=== PATIENT | female | born 1970 | race Hispanic/Latino ===

== ENCOUNTER 2024-09-18 13:40 | Inpatient (IN) | payer OTHER, SELFPAY ==
--- NOTE | 2024-09-18 13:57 | RAD REPORT ---
EXAM: CT brain without contrast HISTORY: Left facial droop. COMPARISON: None TECHNIQUE: Multiple contiguous axial images were obtained and a CT of the brain without contrast. Sagittal and coronal reformats were performed. Automated exposure control, adjustment of the mA and/or kV according to patient size, and/or itera tive reconstruction. Unless otherwise specified, incidental findings do not require dedicated imaging follow-u FINDINGS: An intracranial bleed is not seen Ventricles are normal caliber No extra-axial fluid collection noted Mild low-density areas within periventricular, deep subcortical white matter probably ischemic change s secondary to small vessel disease No fluid within the visualized sinuses or mastoids noted. IMPRESSION: No acute intracranial abnormality noted. If the patient's symptoms persist MRI of the brain would be recommended. from the emergency room was notified at 1:53 PM September 18, 2024
[2024-09-18 14:09] LABS: Absolute Eosinophils 0.1 K/uL (0-0.5); Absolute Lymphocytes (CBC) 1.8 K/uL (0.7-4.9); Absolute Monocytes 0.3 K/uL (0.1-1.3); Absolute Neutrophil 5.1 K/uL (1.8-8.0); Basophils % 0.5 % (0-1.3); Eosinophils % 1.3 % (0-4.4); Hematocrit 40.1 % (36.0-45.0); Hemoglobin 13.5 g/dL (12.0-15.0); Lymphocytes % 24.6 % (15.3-44.8); MCH 30.7 pg (27.0-35.0); MCHC 33.7 g/dL (32.0-36.0); MCV 91.1 fL (80-100); MPV 9.1 fL (7.6-11.3); Monocytes % 3.9 % (3.3-12.3); Neutrophils % 69.7 % (41.7-73.7); Platelets 201 thou/uL (152-406); Red Cell Distribution Width 13.7 % (12.1-15.2)
[2024-09-18 14:18] LABS: PT Prothrombin Time 13.4 SECONDS (9.4-12.5); PTT, Activated Partial Thromb 32.3 SECONDS (24.3-36.9); Protime INR 1.28
[2024-09-18] MEDS ORDERED: Nicardipine/NS 25 MG/250 ML KIT IV ONE ×2 (14:25→20:40)
[2024-09-18 14:27] LABS: Anion Gap 7.2 mEq/L (5.0-15.0); Magnesium 2.1 mg/dL (1.6-2.4); Potassium 3.2 mEq/L (3.5-5.1)
[2024-09-18 14:29] LABS: Troponin High Sensitivity 72.8 pg/mL (<58.9)
--- NOTE | 2024-09-18 14:33 | RAD REPORT ---
Procedure: Chest Single View HISTORY: CVA workup COMPARISON: none FINDINGS: The lungs appear clear of acute infiltrate. No significant pleural effusion noted. The heart is mildly enlarged.. IMPRESSION: No acute abnormality is displayed.
[2024-09-18] MEDS ORDERED: ENOXAPARIN 100 MG/ML SYR SQ ONE (15:55)
[2024-09-18] MEDS: ASPIRIN 300 MG/SUPP PR ONE (16:15)
--- NOTE | 2024-09-18 16:38 | RAD REPORT ---
EXAMINATION: CTA HEAD CLINICAL INDICATION: Left facial droop TECHNIQUE: Axial CT images were obtained through the head after 100 cc Isovue-370 intravenous contras t utilizing angiographic protocol with 3D post-processing (maximum intensity projection images, volume rendered images and/or shaded surface rendered images). One or more of the following dose red uction techniques were used: Automated exposure control, adjustment of the mA and/or kV according to patient size, and/or iterative reconstruction. Unless otherwise specified, incidental findings do not require dedicated imaging follow-up. COMPARISON: None FINDINGS: Distal internal carotid, basilar, anterior cerebral, middle cerebral and posterior cerebral arteries do not demonstrate a significant stenosis An aneurysm not noted. No large vessel occlusion IMPRESSION: No acute vascular abnormality displayed
--- NOTE | 2024-09-18 16:38 | RAD REPORT ---
EXAMINATION: Neck Angio CLINICAL INDICATION: Left facial droop TECHNIQUE: Axial CT images were obtained from the aortic arch to the skull base after intravenous adm inistration of 100 cc Isovue-[id number] utilizing angiographic protocol. Multiplanar reformats, as well as 3D post-processing (maximum intensity projection images, volume rendered images and/or shaded surface rendered images) were generated and reviewed. One or more of the following dose reduction techniques were used: Automated exposure control, adjustment of the mA and/or kV according to patient size, and/or iterative reconstruction. Unless otherwise specified, incidental findings do not require dedicated imaging follow-up. COMPARISON: No prior exam. FINDINGS: The visualized aortic arch and great vessels do not demonstrate a significant abnormality The common carotid, internal carotid and external carotid arteries bilaterally unremarkable Left vertebral artery is dominant. Vertebral arteries unremarkable. No significant stenosis noted. A dissection is not seen. Methods for NASCET criteria: Mild stenosis, 0% to 49%; Moderate stenosis 50% to 69%; Severe stenosis, 70% to 99% IMPRESSION: No acute vascular abnormality displayed
--- NOTE | 2024-09-18 16:40 | EDPHYS ---
Physician Documentation [facility] Name: Sujata Castaneda Age: 54 yrs Sex: Female : 1970 Arrival Date: 09/18/2024 Time: 13:40 Bed 4 Private MD: ED Physician Olayinka Garcia HPI: 09/18 13:43 This 54 yrs old Female presents to ER via Unassigned with complaints of L ec2 sided facial droop. 13:44 Patient arrives today with a less than one 1 hour prior to arrival with a left-sided ec2 facial droop. No rashes. No previous stroke history. Has not seen a doctor in over 32 years. No falls injury or trauma. Droop was noted by daughter. Patient is not on medications.. Historical: - Allergies: 14:09 No Known Allergies; hb - Home Meds: 14:09 None [Active]; hb - PMHx: 14:09 None; hb - PSHx: 14:09 None; hb - Immunization history:: Adult Immunizations up to date. - Infectious Disease History:: Denies. - Social history:: Smoking status: Patient denies any tobacco usage or history of. ROS: 13:45 Constitutional: as per hpi ec2 Exam: 13:45 Constitutional: GEN: NAD Head: atraumatic Eyes: EOMI Ears: External ears are ec2 normal. CV: regular rate LUNGS: no respiratory distress ABD: non-distended SKIN: no evidence of rashes MSK: no evidence of trauma. Neuro: Left-sided facial droop with partial involvement of the forehead left side, bilateral upper and lower extremities with intact strength. Vital Signs: 13:52 BP 238 / 134; Pulse 74; Resp 16; Temp 97.8; Pulse Ox 100% on R/A; Weight 104.33 kg; hb Height 5 ft. 7 in. ; Pain 0/10; 14:32 BP 234 / 134; Pulse 98; Resp 22 S; Pulse Ox 99% on R/A; aa5 14:47 BP 228 / 129; Pulse 96; Resp 20 S; Pulse Ox 99% on R/A; aa5 15:00 BP 216 / 118; Pulse 99; Resp 21 S; Pulse Ox 99% on R/A; aa5 15:15 BP 217 / 105; Pulse 86; Resp 20 S; Pulse Ox 97% on R/A; aa5 15:40 BP 212 / 108; Pulse 90; Resp 22 S; Pulse Ox 98% on R/A; aa5 16:30 BP 200 / 107; Pulse 104; Resp 20 S; Pulse Ox 99% on R/A; aa5 17:16 BP 209 / 116; Pulse 88; Resp 18 S; Pulse Ox 96% on R/A; aa5 18:00 BP 220 / 114; Pulse 84; Resp 16 S; Pulse Ox 98% on R/A; aa5 18:45 BP 207 / 100; Pulse 93; Resp 19 S; Pulse Ox 100% on R/A; aa5 19:22 BP 207 / 100; Pulse 92; Resp 18; Temp 97.8; Pulse Ox 98% ; Pain 0/10; aa5 13:52 Body Mass Index 36.02 (104.33 kg, 170.18 cm) hb 13:52 Pain Scale: Adult hb 19:22 Pain Scale: Adult aa5 14:47 MD states BP goal is 220/120 aa5 15:00 MD aware of BP aa5 17:16 MD aware of BP aa5 NIH Stroke Scale Scores: 13:45 NIHSS Score: 4 ec2 14:09 NIHSS Score: 3 hb 14:10 NIHSS Score: 3 aa5 14:30 NIHSS Score: 3 aa5 15:00 NIHSS Score: 3 aa5 15:30 NIHSS Score: 3 aa5 16:00 NIHSS Score: 3 aa5 16:30 NIHSS Score: 3 aa5 17:00 NIHSS Score: 3 aa5 17:30 NIHSS Score: 3 aa5 18:00 NIHSS Score: 3 aa5 18:30 NIHSS Score: 3 aa5 19:00 NIHSS Score: 3 aa5 [place] Coma Score: 19:22 Eye Response: spontaneous(4). Motor Response: obeys commands(6). Verbal Response: aa5 oriented(5). Total: 15. MDM: 13:41 Medical Screening Exam initiated ec2 13:43 Data reviewed: vital signs, nurses notes. ED course: Patient with a last known well of ec2 1 hour ago. Patient is extremely claustrophobic and skeptical of health care, there will be a significant delay in CT imaging, lab work as patient is agreeable however not cooperative. 14:16 ED course: I had extensive conversation with daughter as well as 2 family friends ec2 regarding concerns for stroke and possible administration of TNK ultimately patient did not want to proceed with TNK administration.. 14:26 ED course: EKG independently reviewed and interpreted by me, shows normal sinus rhythm, ec2 rate of 86, no acute ST segment elevations, intervals are nonactionable.. 14:39 ED course: Metabolic profile shows slight hypokalemia with potassium of 3.2. Troponin ec2 slightly elevated at 73. CBC is nonactionable. CT scan of the head shows no acute intracranial process. Chest x-ray shows no acute intrathoracic process. Given then marked hypertension, will start the patient on a Cardene drip. Will aim for blood pressure goals of 220/120.. 16:02 ED course: Of note, pt initially declined CTA, is now agreeable. ec2 16:39 ED course: CT angio head and neck showed no acute rate limiting pathology. Will admit ec2 the patient for further stroke workup, hypertensive emergency.. ED course: Discussed with hospitalist, pending admission.. 02 13:42 Order name: Basic Metabolic Panel; Complete Time: 14:39 ec2 09/18 13:42 Order name: CBC with Diff; Complete Time: 14:39 ec2 09/18 13:42 Order name: High Sensitivity Troponin; Complete Time: 14:39 ec2 09/18 13:42 Order name: Magnesium; Complete Time: 14:39 ec2 09/18 13:42 Order name: Protime (+inr); Complete Time: 14:39 ec2 09/18 13:42 Order name: Ptt, Activated; Complete Time: 14:39 ec2 09/18 14:14 Order name: Glucose, Ancillary Testing; Complete Time: 14:39 EDMS 09/18 20:24 Order name: Troponin High Sensitivity EDMS 09/18 20:24 Order name: T4,Total EDMS 09/18 20:24 Order name: Thyroid Stimulating Hormone EDMS 09/18 13:42 Order name: CT Head Angio; Complete Time: 16:39 ec2 09/18 13:42 Order name: CT Neck Angio; Complete Time: 16:39 ec2 09/18 13:42 Order name: CT Stroke Brain w/o Contrast; Complete Time: 14:39 ec2 09/18 13:42 Order name: Stroke CXR 1 View; Complete Time: 14:39 ec2 09/18 13:42 Order name: Accucheck; Complete Time: 14:12 ec2 09/18 13:42 Order name: Cardiac monitoring; Complete Time: 14:21 ec2 09/18 13:42 Order name: EKG - Nurse/Tech; Complete Time: 14:21 ec2 09/18 13:42 Order name: IV Saline Lock; Complete Time: 14:12 ec2 09/18 13:42 Order name: Labs collected and sent; Complete Time: 14:12 ec2 09/18 13:42 Order name: NPO; Complete Time: 14:12 ec2 09/18 13:42 Order name: O2 Per Protocol; Complete Time: 14:12 ec2 09/18 13:42 Order name: O2 Sat Monitoring; Complete Time: 14:12 ec2 09/18 13:42 Order name: Stroke Swallow Screen; Complete Time: 15:05 ec2 Administered Medications: 14:32 Drug: niCARdipine IV 5 mg/hr IV at calculated rate See Administration Instructions; aa5 (Standard concentration 25 mg / 250 mL NS); Recommended max rate 15 mg/hr; Titrate 2.5 mg/hr as often as every 15 minutes to achieve goal (see titration policy); Route: IV; Rate: calculated rate; Site: right antecubital; 14:47 Follow up: Rate change 7.5 mg/hr aa5 18:10 Follow up: Now infusing to right hand aa5 19:41 Follow up: Response: No adverse reaction; IV Status: Infusion continued upon admission aa5 15:52 Not Given (Pt failed swallow screen ): potassium [id number] meq PO once aa5 15:52 Not Given (Pt failed swallow screenn): aspirinchewable tablet 324 mg PO once; 81 mg aa5 tablets x 4 15:52 Not Given (pt failed swallow screenn): [id number] mg PO once aa5 16:32 Drug: Aspirin ME Suppository 300 mg ME once Route: ME; aa5 18:50 Follow up: Response: No adverse reaction aa5 16:32 Drug: Enoxaparin Sub-Q 1 mg/kg Sub-Q once Route: Sub-Q; Site: right lower abdomen; aa5 18:50 Follow up: Response: No adverse reaction aa5 Point of Care Testing: Blood Glucose: 14:01 Blood Glucose: 110 mg/dL; hb Ranges: Critical Glucose Levels:Adult <50 mg/dl or >400 mg/dl <40 mg/dl or >180 mg/dl Disposition Summary: 09/18/24 16:40 Hospitalization Ordered Notes: Hospitalization Status: Inpatient Admission ec2 Provider: Claudio Lemons ec2 Condition: Fair ec2 Problem: new ec2 Symptoms: are unchanged ec2 Bed/Room Type: Standard ec2 Location: Intensive Care Unit(09/18/24 21:51) sc1 Room Assignment: 7-(09/18/24 21:51) sc1 Diagnosis - Left Sided Facial Paralysis ec2 Forms: - Medication Reconciliation Form ec2 - SBAR form ec2 - Leadership Thank You Letter ec2 Critical care time excluding procedures: 16:39 Critical care time: Bedside Care: 30 minutes, Consultation: 5 minutes. Total time: 35 ec2 minutes NIH Stroke Scale - NIH Stroke Score Date: 09/18/2024 Time: 13:45 Total Score = 4 10. Dysarthria (speech clarity - read or repeat words) - 1(Mild to Moderate) 11. Extinction and Inattention (visual/tactile/auditory/spatial/personal) - 0(No abnormality) 1a. Level of Consciousness (LOC) - 0(Alert) 1b. Level of Consciousness (LOC) (Month \T\ Age) - 0(Both) 1c. LOC Commands (Open \T\ Closes Eyes/Wet Finisher Wool) - 0(Both) 2. Best Gaze (Lateral Gaze Paresis) - 0(Normal) 3. Visual Field Loss - 0(No visual loss) 4. Facial Palsy - 3(Complete paralysis) 5a. Left Arm: Motor (10-second hold) - 0(No drift) 5b. Right Arm: Motor (10-second hold) - 0(No drift) 6a. Left Leg: Motor (5-second hold - always test supine) - 0(No drift) 6b. Right Leg: Motor (5-second hold - always test supine) - 0(No drift) 7. Limb Ataxia (finger/nose \T\ heel/morelos - test with eyes open) - 0(Absent) 8. Sensory Loss (pinprick arms/legs/face) - 0(Normal) 9. Best Language: Aphasia (description/naming/reading) - 0(No aphasia) Initials: ec2 NIH Stroke Scale - NIH Stroke Score Date: 09/18/2024 Time: 14:09 Total Score = 3 10. Dysarthria (speech clarity - read or repeat words) - 0(Normal) 11. Extinction and Inattention (visual/tactile/auditory/spatial/personal) - 0(No abnormality) 1a. Level of Consciousness (LOC) - 0(Alert) 1b. Level of Consciousness (LOC) (Month \T\ Age) - 0(Both) 1c. LOC Commands (Open \T\ Closes Eyes/Wet Finisher Wool) - 0(Both) 2. Best Gaze (Lateral Gaze Paresis) - 0(Normal) 3. Visual Field Loss - 0(No visual loss) 4. Facial Palsy 5a. Left Arm: Motor (10-second hold) - (No drift) 5b. Right Arm: Motor (10-second hold) - 3(No effort against gravity) 6a. Left Leg: Motor (5-second hold - always test supine) - 0(No drift) 6b. Right Leg: Motor (5-second hold - always test supine) - 0(No drift) 7. Limb Ataxia (finger/nose \T\ heel/morelos - test with eyes open) - 0(Absent) 8. Sensory Loss (pinprick arms/legs/face) - 0(Normal) 9. Best Language: Aphasia (description/naming/reading) - 0(No aphasia) Initials: NIH Stroke Scale - NIH Stroke Score Date: 09/18/2024 Time: 14:10 Total Score = 3 10. Dysarthria (speech clarity - read or repeat words) - 0(Normal) 11. Extinction and Inattention (visual/tactile/auditory/spatial/personal) - 0(No abnormality) 1a. Level of Consciousness (LOC) - 0(Alert) 1b. Level of Consciousness (LOC) (Month \T\ Age) - 0(Both) 1c. LOC Commands (Open \T\ Closes Eyes/Wet Finisher Wool) - 0(Both) 2. Best Gaze (Lateral Gaze Paresis) - 0(Normal) 3. Visual Field Loss - 0(No visual loss) 4. Facial Palsy - 3(Complete paralysis) 5a. Left Arm: Motor (10-second hold) - 0(No drift) 5b. Right Arm: Motor (10-second hold) - 0(No drift) 6a. Left Leg: Motor (5-second hold - always test supine) - 0(No drift) 6b. Right Leg: Motor (5-second hold - always test supine) - 0(No drift) 7. Limb Ataxia (finger/nose \T\ heel/morelos - test with eyes open) - 0(Absent) 8. Sensory Loss (pinprick arms/legs/face) - 0(Normal) 9. Best Language: Aphasia (description/naming/reading) - 0(No aphasia) Initials: aa5 NIH Stroke Scale - NIH Stroke Score Date: 09/18/2024 Time: 14:30 Total Score = 3 10. Dysarthria (speech clarity - read or repeat words) - 0(Normal) 11. Extinction and Inattention (visual/tactile/auditory/spatial/personal) - 0(No abnormality) 1a. Level of Consciousness (LOC) - 0(Alert) 1b. Level of Consciousness (LOC) (Month \T\ Age) - 0(Both) 1c. LOC Commands (Open \T\ Closes Eyes/Wet Finisher Wool) - 0(Both) 2. Best Gaze (Lateral Gaze Paresis) - 0(Normal) 3. Visual Field Loss - 0(No visual loss) 4. Facial Palsy - 3(Complete paralysis) 5a. Left Arm: Motor (10-second hold) - 0(No drift) 5b. Right Arm: Motor (10-second hold) - 0(No drift) 6a. Left Leg: Motor (5-second hold - always test supine) - 0(No drift) 6b. Right Leg: Motor (5-second hold - always test supine) - 0(No drift) 7. Limb Ataxia (finger/nose \T\ heel/morelos - test with eyes open) - 0(Absent) 8. Sensory Loss (pinprick arms/legs/face) - 0(Normal) 9. Best Language: Aphasia (description/naming/reading) - 0(No aphasia) Initials: aa5 NIH Stroke Scale - NIH Stroke Score Date: 09/18/2024 Time: 15:00 Total Score = 3 10. Dysarthria (speech clarity - read or repeat words) - 0(Normal) 11. Extinction and Inattention (visual/tactile/auditory/spatial/personal) - 0(No abnormality) 1a. Level of Consciousness (LOC) - 0(Alert) 1b. Level of Consciousness (LOC) (Month \T\ Age) - 0(Both) 1c. LOC Commands (Open \T\ Closes Eyes/Wet Finisher Wool) - 0(Both) 2. Best Gaze (Lateral Gaze Paresis) - 0(Normal) 3. Visual Field Loss - 0(No visual loss) 4. Facial Palsy - 3(Complete paralysis) 5a. Left Arm: Motor (10-second hold) - 0(No drift) 5b. Right Arm: Motor (10-second hold) - 0(No drift) 6a. Left Leg: Motor (5-second hold - always test supine) - 0(No drift) 6b. Right Leg: Motor (5-second hold - always test supine) - 0(No drift) 7. Limb Ataxia (finger/nose \T\ heel/morelos - test with eyes open) - 0(Absent) 8. Sensory Loss (pinprick arms/legs/face) - 0(Normal) 9. Best Language: Aphasia (description/naming/reading) - 0(No aphasia) Initials: aa5 NIH Stroke Scale - NIH Stroke Score Date: 09/18/2024 Time: 15:30 Total Score = 3 10. Dysarthria (speech clarity - read or repeat words) - 0(Normal) 11. Extinction and Inattention (visual/tactile/auditory/spatial/personal) - 0(No abnormality) 1a. Level of Consciousness (LOC) - 0(Alert) 1b. Level of Consciousness (LOC) (Month \T\ Age) - 0(Both) 1c. LOC Commands (Open \T\ Closes Eyes/Wet Finisher Wool) - 0(Both) 2. Best Gaze (Lateral Gaze Paresis) - 0(Normal) 3. Visual Field Loss - 0(No visual loss) 4. Facial Palsy - 3(Complete paralysis) 5a. Left Arm: Motor (10-second hold) - 0(No drift) 5b. Right Arm: Motor (10-second hold) - 0(No drift) 6a. Left Leg: Motor (5-second hold - always test supine) - 0(No drift) 6b. Right Leg: Motor (5-second hold - always test supine) - 0(No drift) 7. Limb Ataxia (finger/nose \T\ heel/morelos - test with eyes open) - 0(Absent) 8. Sensory Loss (pinprick arms/legs/face) - 0(Normal) 9. Best Language: Aphasia (description/naming/reading) - 0(No aphasia) Initials: aa5 NIH Stroke Scale - NIH Stroke Score Date: 09/18/2024 Time: 16:00 Total Score = 3 10. Dysarthria (speech clarity - read or repeat words) - 0(Normal) 11. Extinction and Inattention (visual/tactile/auditory/spatial/personal) - 0(No abnormality) 1a. Level of Consciousness (LOC) - 0(Alert) 1b. Level of Consciousness (LOC) (Month \T\ Age) - 0(Both) 1c. LOC Commands (Open \T\ Closes Eyes/Wet Finisher Wool) - 0(Both) 2. Best Gaze (Lateral Gaze Paresis) - 0(Normal) 3. Visual Field Loss - 0(No visual loss) 4. Facial Palsy - 3(Complete paralysis) 5a. Left Arm: Motor (10-second hold) - 0(No drift) 5b. Right Arm: Motor (10-second hold) - 0(No drift) 6a. Left Leg: Motor (5-second hold - always test supine) - 0(No drift) 6b. Right Leg: Motor (5-second hold - always test supine) - 0(No drift) 7. Limb Ataxia (finger/nose \T\ heel/morelos - test with eyes open) - 0(Absent) 8. Sensory Loss (pinprick arms/legs/face) - 0(Normal) 9. Best Language: Aphasia (description/naming/reading) - 0(No aphasia) Initials: 5 NIH Stroke Scale - NIH Stroke Score Date: 09/18/2024 Time: 16:30 Total Score = 3 10. Dysarthria (speech clarity - read or repeat words) - 0(Normal) 11. Extinction and Inattention (visual/tactile/auditory/spatial/personal) - 0(No abnormality) 1a. Level of Consciousness (LOC) - 0(Alert) 1b. Level of Consciousness (LOC) (Month \T\ Age) - 0(Both) 1c. LOC Commands (Open \T\ Closes Eyes/Wet Finisher Wool) - 0(Both) 2. Best Gaze (Lateral Gaze Paresis) - 0(Normal) 3. Visual Field Loss - 0(No visual loss) 4. Facial Palsy - 3(Complete paralysis) 5a. Left Arm: Motor (10-second hold) - 0(No drift) 5b. Right Arm: Motor (10-second hold) - 0(No drift) 6a. Left Leg: Motor (5-second hold - always test supine) - 0(No drift) 6b. Right Leg: Motor (5-second hold - always test supine) - 0(No drift) 7. Limb Ataxia (finger/nose \T\ heel/morelos - test with eyes open) - 0(Absent) 8. Sensory Loss (pinprick arms/legs/face) - 0(Normal) 9. Best Language: Aphasia (description/naming/reading) - 0(No aphasia) Initials: aa5 NIH Stroke Scale - NIH Stroke Score Date: 09/18/2024 Time: 17:00 Total Score = 3 10. Dysarthria (speech clarity - read or repeat words) - 0(Normal) 11. Extinction and Inattention (visual/tactile/auditory/spatial/personal) - 0(No abnormality) 1a. Level of Consciousness (LOC) - 0(Alert) 1b. Level of Consciousness (LOC) (Month \T\ Age) - 0(Both) 1c. LOC Commands (Open \T\ Closes Eyes/Wet Finisher Wool) - 0(Both) 2. Best Gaze (Lateral Gaze Paresis) - 0(Normal) 3. Visual Field Loss - 0(No visual loss) 4. Facial Palsy - 3(Complete paralysis) 5a. Left Arm: Motor (10-second hold) - 0(No drift) 5b. Right Arm: Motor (10-second hold) - 0(No drift) 6a. Left Leg: Motor (5-second hold - always test supine) - 0(No drift) 6b. Right Leg: Motor (5-second hold - always test supine) - 0(No drift) 7. Limb Ataxia (finger/nose \T\ heel/morelos - test with eyes open) - 0(Absent) 8. Sensory Loss (pinprick arms/legs/face) - 0(Normal) 9. Best Language: Aphasia (description/naming/reading) - 0(No aphasia) Initials: aa5 NIH Stroke Scale - NIH Stroke Score Date: 09/18/2024 Time: 17:30 Total Score = 3 10. Dysarthria (speech clarity - read or repeat words) - 0(Normal) 11. Extinction and Inattention (visual/tactile/auditory/spatial/personal) - 0(No abnormality) 1a. Level of Consciousness (LOC) - 0(Alert) 1b. Level of Consciousness (LOC) (Month \T\ Age) - 0(Both) 1c. LOC Commands (Open \T\ Closes Eyes/Wet Finisher Wool) - 0(Both) 2. Best Gaze (Lateral Gaze Paresis) - 0(Normal) 3. Visual Field Loss - 0(No visual loss) 4. Facial Palsy - 3(Complete paralysis) 5a. Left Arm: Motor (10-second hold) - 0(No drift) 5b. Right Arm: Motor (10-second hold) - 0(No drift) 6a. Left Leg: Motor (5-second hold - always test supine) - 0(No drift) 6b. Right Leg: Motor (5-second hold - always test supine) - 0(No drift) 7. Limb Ataxia (finger/nose \T\ heel/morelos - test with eyes open) - 0(Absent) 8. Sensory Loss (pinprick arms/legs/face) - 0(Normal) 9. Best Language: Aphasia (description/naming/reading) - 0(No aphasia) Initials: aa5 NIH Stroke Scale - NIH Stroke Score Date: 09/18/2024 Time: 18:00 Total Score = 3 10. Dysarthria (speech clarity - read or repeat words) - 0(Normal) 11. Extinction and Inattention (visual/tactile/auditory/spatial/personal) - 0(No abnormality) 1a. Level of Consciousness (LOC) - 0(Alert) 1b. Level of Consciousness (LOC) (Month \T\ Age) - 0(Both) 1c. LOC Commands (Open \T\ Closes Eyes/Wet Finisher Wool) - 0(Both) 2. Best Gaze (Lateral Gaze Paresis) - 0(Normal) 3. Visual Field Loss - 0(No visual loss) 4. Facial Palsy - 3(Complete paralysis) 5a. Left Arm: Motor (10-second hold) - 0(No drift) 5b. Right Arm: Motor (10-second hold) - 0(No drift) 6a. Left Leg: Motor (5-second hold - always test supine) - 0(No drift) 6b. Right Leg: Motor (5-second hold - always test supine) - 0(No drift) 7. Limb Ataxia (finger/nose \T\ heel/morelos - test with eyes open) - 0(Absent) 8. Sensory Loss (pinprick arms/legs/face) - 0(Normal) 9. Best Language: Aphasia (description/naming/reading) - 0(No aphasia) Initials: aa5 NIH Stroke Scale - NIH Stroke Score Date: 09/18/2024 Time: 18:30 Total Score = 3 10. Dysarthria (speech clarity - read or repeat words) - 0(Normal) 11. Extinction and Inattention (visual/tactile/auditory/spatial/personal) - 0(No abnormality) 1a. Level of Consciousness (LOC) - 0(Alert) 1b. Level of Consciousness (LOC) (Month \T\ Age) - 0(Both) 1c. LOC Commands (Open \T\ Closes Eyes/Wet Finisher Wool) - 0(Both) 2. Best Gaze (Lateral Gaze Paresis) - 0(Normal) 3. Visual Field Loss - 0(No visual loss) 4. Facial Palsy - 3(Complete paralysis) 5a. Left Arm: Motor (10-second hold) - 0(No drift) 5b. Right Arm: Motor (10-second hold) - 0(No drift) 6a. Left Leg: Motor (5-second hold - always test supine) - 0(No drift) 6b. Right Leg: Motor (5-second hold - always test supine) - 0(No drift) 7. Limb Ataxia (finger/nose \T\ heel/morelos - test with eyes open) - 0(Absent) 8. Sensory Loss (pinprick arms/legs/face) - 0(Normal) 9. Best Language: Aphasia (description/naming/reading) - 0(No aphasia) Initials: aa5 NIH Stroke Scale - NIH Stroke Score Date: 09/18/2024 Time: 19:00 Total Score = 3 10. Dysarthria (speech clarity - read or repeat words) - 0(Normal) 11. Extinction and Inattention (visual/tactile/auditory/spatial/personal) - 0(No abnormality) 1a. Level of Consciousness (LOC) - 0(Alert) 1b. Level of Consciousness (LOC) (Month \T\ Age) - 0(Both) 1c. LOC Commands (Open \T\ Closes Eyes/Wet Finisher Wool) - 0(Both) 2. Best Gaze (Lateral Gaze Paresis) - 0(Normal) 3. Visual Field Loss - 0(No visual loss) 4. Facial Palsy - 3(Complete paralysis) 5a. Left Arm: Motor (10-second hold) - 0(No drift) 5b. Right Arm: Motor (10-second hold) - 0(No drift) 6a. Left Leg: Motor (5-second hold - always test supine) - 0(No drift) 6b. Right Leg: Motor (5-second hold - always test supine) - 0(No drift) 7. Limb Ataxia (finger/nose \T\ heel/morelos - test with eyes open) - 0(Absent) 8. Sensory Loss (pinprick arms/legs/face) - 0(Normal) 9. Best Language: Aphasia (description/naming/reading) - 0(No aphasia) Initials: aa5 Signatures: Dispatcher [employer] EDMS Samantha Little Audri, RN RN aa5 Pamela Del Cid RN RN Roxanne Moscoso RN RN me1 Olayinka Garcia MD MD ec2 Corrections: (The following items were deleted from the chart) 13:43 13:43 CT-STROKE BRAIN W/O CONTRAST+CT.RAD.BRZ ordered. EDMS EDMS 19:00 16:40 Intensive Care Unit ec2 sp 19:00 16:40 ec2 sp 21:51 19:00 BR ER HOLD sp me1 21:51 19:00 ERHOLD- sp me1
--- NOTE | 2024-09-18 16:40 | ER ---
Nurse's Notes [facility] Name: Sujata Castaneda Age: 54 yrs Sex: Female : 1970 Arrival Date: 09/18/2024 Time: 13:40 Bed 4 Private MD: Diagnosis: Left Sided Facial Paralysis Presentation: 09/18 13:40 Chief complaint: EMS states: Left sided facial droop that started at approx 1230. hb Coronavirus screen: At this time, the client does not indicate any symptoms associated with coronavirus-19. Ebola Screen: No symptoms or risks identified at this time. 13:40 Method Of Arrival: EMS: [facility] 13:45 An acute neurological deficit is present. The charge nurse has been notified. hb Pre-hospital glucose is not applicable to this patient. Initial Sepsis Screen: Does the patient meet any 2 criteria? No. Patient's initial sepsis screen is negative. Does the patient have a suspected source of infection? No. Patient's initial sepsis screen is negative. Risk Assessment: Do you want to hurt yourself or someone else? Patient reports no desire to harm self or others. Onset of symptoms was September 18, 2024. 13:45 Acuity: AMANDA 2 hb Triage Assessment: 16:19 The onset of the patients symptoms was September 18, 2024 at 12:30. aa5 19:26 Neuro: Reports. aa5 Stroke Activation: Symptom onset < 3 hours Physician: ED Attending; Name: ; Notified At: ; Arrived At: Physician: Mid-Level Provider; Name: ; Notified At: ; Arrived At: Physician: [not used]; Name: ; Notified At: ; Arrived At: Physician: [not used]; Name: ; Notified At: ; Arrived At: Physician: [not used]; Name: ; Notified At: ; Arrived At: Historical: - Allergies: 14:09 No Known Allergies; hb - Home Meds: 14:09 None [Active]; hb - PMHx: 14:09 None; hb - PSHx: 14:09 None; hb - Immunization history:: Adult Immunizations up to date. - Infectious Disease History:: Denies. - Social history:: Smoking status: Patient denies any tobacco usage or history of. Screenin:[address] [facility] ED Fall Risk Assessment (Adult) History of falling in the last 3 months, hb including since admission No falls in past 3 months (0 pts) Confusion or Disorientation No (0 pts) Intoxicated or Sedated No (0 pts) Impaired Gait No (0 pts) Mobility Assist Device Used No (0 pt) Altered Elimination No (0 pt) Score/Fall Risk Level 0 - 2 = Low Risk Oriented to surroundings, Maintained a safe environment, Educated pt \\T\\ family on fall prevention, incl call for assistance when getting out of bed. Abuse screen: Denies threats or abuse. Denies injuries from another. Nutritional screening: No deficits noted. Tuberculosis screening: No symptoms or risk factors identified. Assessment: 13:40 Reassessment: PT INITIALLY REFUSING TREATMENT AND RADIOLOGY, STATES ANXIOUS ABOUT bp MEDICAL CARE. PT AOx4 AND REPEATEDLY REASSURED OF SAFETY OF CT STUDIES AND IMPORTANCE IN THIS CASE. PROLONGED DELAY COUNSELING PT. 14:09 VAN Scoring: Arm Drift: Patients demonstrates NO arm weakness. Patient is VAN Negative. hb 14:10 Reassessment: Pt back from CT scan . aa5 14:10 General: Appears uncomfortable, Behavior is cooperative, anxious. Pain: Denies pain. aa5 Neuro: Level of Consciousness is awake, alert, obeys commands, Oriented to person, place, time, situation, Tier Lift Truck Operator are equal bilaterally Moves all extremities. Gait is steady, Speech is normal, Facial droop on left, Paralysis noted to left side of face began at 1230 as reported by daughter. . Denies weakness blurred vision dizziness, difficulty swallowing, paresthesias numbness headache photophobia diplopia. Cardiovascular: Heart tones S1 S2 present Rhythm is regular. Respiratory: Airway is patent Respiratory effort is even, unlabored, Respiratory pattern is regular, symmetrical. GI: Abdomen is obese, Bowel sounds present X 4 quads. Abd is soft and non tender X 4 quads. : No signs and/or symptoms were reported regarding the genitourinary system. EENT: No signs and/or symptoms were reported regarding the EENT system. Derm: Skin is pink, warm \\T\\ dry. Musculoskeletal: Range of motion: intact in all extremities. 14:20 Reassessment: MD at bedside speaking to patient about TNK administration, potential aa5 benefits and risks, pt refuses TNK administration. . 14:20 Reassessment: PT COUNSELED BY MD AND MX STAFF ON POTENTIAL VALUE OF TNKASE. CONTINUES bp TO REFUSE TNKASE, STATES "IF THERE'S ANY RISK AT ALL, I DON'T WANT IT.". 14:20 TNKase (Tenecteplase) Screening: Indications: Treatment will start within 4.5 hours aa5 onset of symptoms: Yes. No evidence of intracranial hemorrhage or CT of head and no evidence of peripheral hemorrhage or recent CVA: Yes. Consent for thrombolytic therapy: No. 14:25 Reassessment: Pt assisted to restroom for elimination needs. . aa5 14:34 [place] Swallow Protocol Exclusion Criteria: Unable to remain alert for testing: No NPO aa5 for medical/surgical reason by provider order No Tracheostomy tube present No No thin liquids due to preexisting dysphagia/baseline modified diet thickened liquids No Exclusion Criteria Result: Proceed Brief Cognitive Screen What is your name? Normal, Where are you right now? Normal, What year is it? Normal. Oral Mechanism Examination Facial Symmetry: Abnormal Motion: Normal, Lip Closure: Abnormal Oral Mechanism Result: Abnormal: Abnormal . 3 oz Water Swallow Challenge: Pt able to drink all water without stopping, coughing, choking or throat clearing: No Result: FAIL MD Notified: Olayinka Garcia MD. 15:00 Reassessment: Patient is alert, oriented x 3, equal unlabored respirations, skin aa5 warm/dry/pink. Patient denies pain at this time. Neuro: Tier Lift Truck Operator are equal bilaterally Moves all extremities. Gait is steady, Speech is normal, Facial droop on left. 15:30 Reassessment: MD at bedside . aa5 15:30 Reassessment: Patient is alert, oriented x 3, equal unlabored respirations, skin aa5 warm/dry/pink. Patient denies pain at this time. Pt more calm and less anxious at this time, pt's family at bedside. . 16:00 Reassessment: Patient is alert, oriented x 3, equal unlabored respirations, skin aa5 warm/dry/pink. 16:30 Reassessment: Patient is alert, oriented x 3, equal unlabored respirations, skin aa5 warm/dry/pink. Patient denies pain at this time. 17:00 Reassessment: Patient is alert, oriented x 3, equal unlabored respirations, skin aa5 warm/dry/pink. 17:16 Reassessment: Pt currently sleeping. . aa5 18:00 Reassessment: Patient is alert, oriented x 3, equal unlabored respirations, skin aa5 warm/dry/pink. 18:00 Neuro: Tier Lift Truck Operator are equal bilaterally Moves all extremities. Speech is normal, Facial aa5 droop on left. 18:50 Reassessment: Pt sleeping. . aa5 19:22 Reassessment: Patient appears in no apparent distress at this time. Patient and/or aa5 family updated on plan of care and expected duration. Pain level reassessed. Patient is alert, oriented x 3, equal unlabored respirations, skin warm/dry/pink. Patient denies pain at this time. General: Appears in no apparent distress. comfortable, Behavior is calm, cooperative, appropriate for age. Pain: Denies pain. Neuro: Level of Consciousness is awake, alert, obeys commands, Oriented to person, place, time, situation, Appropriate for age Tier Lift Truck Operator are equal bilaterally Moves all extremities. Gait is steady, Speech is normal, Facial droop on left, Pupils are PERRLA, Pupil Size: 3mm Intact. Cardiovascular: Heart tones S1 S2 present Capillary refill < 3 seconds in bilateral fingers Patient's skin is warm and dry. Rhythm is sinus rhythm. Respiratory: Airway is patent Respiratory effort is even, unlabored, Respiratory pattern is regular, symmetrical, Breath sounds are clear bilaterally. GI: No deficits noted. : No signs and/or symptoms were reported regarding the genitourinary system. EENT: No deficits noted. Derm: No signs and/or symptoms reported regarding the dermatologic system. Musculoskeletal: No signs and/or symptoms reported regarding the musculoskeletal system. Vital Signs: 13:52 BP 238 / 134; Pulse 74; Resp 16; Temp 97.8; Pulse Ox 100% on R/A; Weight 104.33 kg; hb Height 5 ft. 7 in. ; Pain 0/10; 14:32 BP 234 / 134; Pulse 98; Resp 22 S; Pulse Ox 99% on R/A; aa5 14:47 BP 228 / 129; Pulse 96; Resp 20 S; Pulse Ox 99% on R/A; aa5 15:00 BP 216 / 118; Pulse 99; Resp 21 S; Pulse Ox 99% on R/A; aa5 15:15 BP 217 / 105; Pulse 86; Resp 20 S; Pulse Ox 97% on R/A; aa5 15:40 BP 212 / 108; Pulse 90; Resp 22 S; Pulse Ox 98% on R/A; aa5 16:30 BP 200 / 107; Pulse 104; Resp 20 S; Pulse Ox 99% on R/A; aa5 17:16 BP 209 / 116; Pulse 88; Resp 18 S; Pulse Ox 96% on R/A; aa5 18:00 BP 220 / 114; Pulse 84; Resp 16 S; Pulse Ox 98% on R/A; aa5 18:45 BP 207 / 100; Pulse 93; Resp 19 S; Pulse Ox 100% on R/A; aa5 19:22 BP 207 / 100; Pulse 92; Resp 18; Temp 97.8; Pulse Ox 98% ; Pain 0/10; aa5 13:52 Body Mass Index 36.02 (104.33 kg, 170.18 cm) hb 13:52 Pain Scale: Adult hb 19:22 Pain Scale: Adult aa5 14:47 MD states BP goal is 220/120 aa5 15:00 MD aware of BP aa5 17:16 MD aware of BP aa5 Lb Coma Score: 19:22 Eye Response: spontaneous(4). Motor Response: obeys commands(6). Verbal Response: aa5 oriented(5). Total: 15. NIH Stroke Scale Scores: 13:45 NIHSS Score: 4 ec2 14:09 NIHSS Score: 3 hb 14:10 NIHSS Score: 3 aa5 14:30 NIHSS Score: 3 aa5 15:00 NIHSS Score: 3 aa5 15:30 NIHSS Score: 3 aa5 16:00 NIHSS Score: 3 aa5 16:30 NIHSS Score: 3 aa5 17:00 NIHSS Score: 3 aa5 17:30 NIHSS Score: 3 aa5 18:00 NIHSS Score: 3 aa5 18:30 NIHSS Score: 3 aa5 19:00 NIHSS Score: 3 aa5 ED Course: 13:41 Patient arrived in ED. ec2 13:41 Olayinka Garcia MD is Attending Physician. ec2 13:52 CT Stroke Brain w/o Contrast In Process Unspecified. EDMS 14:01 Initial lab(s) drawn, by me, sent to lab. Inserted saline lock: 22 gauge in right hb antecubital area, using aseptic technique. Blood collected. Flushed with 10 mL NS. 14:09 Triage completed. hb 14:09 Arm band placed on. hb 14:10 Patient has correct armband on for positive identification. Bed in low position. Call aa5 light in reach. Side rails up X2. Adult w/ patient. Client placed on continuous cardiac and pulse oximetry monitoring. NIBP monitoring applied. potline monitor on. Pulse ox on. NIBP on. 14:27 Stroke CXR 1 View In Process Unspecified. EDMS 14:34 Diamante Burrows, RN is Primary Nurse. aa5 16:20 No provider procedures requiring assistance completed. aa5 16:22 CT Head Angio In Process Unspecified. EDMS 16:22 CT Neck Angio In Process Unspecified. EDMS 16:40 Claudio Lemons MD is Hospitalizing Provider. ec2 18:10 Inserted saline lock: 22 gauge in right hand, using aseptic technique. aa5 19:01 Report given to SAMUEL Quinones and SAMUEL Hopkins. aa5 19:22 Provided Education on: need for admission. aa5 19:22 Patient admitted, IV remains in place. aa5 Administered Medications: 14:32 Drug: niCARdipine IV 5 mg/hr IV at calculated rate See Administration Instructions; aa5 (Standard concentration 25 mg / 250 mL NS); Recommended max rate 15 mg/hr; Titrate 2.5 mg/hr as often as every 15 minutes to achieve goal (see titration policy); Route: IV; Rate: calculated rate; Site: right antecubital; 14:47 Follow up: Rate change 7.5 mg/hr aa5 18:10 Follow up: Now infusing to right hand aa5 19:41 Follow up: Response: No adverse reaction; IV Status: Infusion continued upon admission aa5 15:52 Not Given (Pt failed swallow screen ): potassium [id number] meq PO once aa5 15:52 Not Given (Pt failed swallow screenn): aspirinchewable tablet 324 mg PO once; 81 mg aa5 tablets x 4 15:52 Not Given (pt failed swallow screenn): [id number] mg PO once aa5 16:32 Drug: Aspirin IA Suppository 300 mg IA once Route: IA; aa5 18:50 Follow up: Response: No adverse reaction aa5 16:32 Drug: Enoxaparin Sub-Q 1 mg/kg Sub-Q once Route: Sub-Q; Site: right lower abdomen; aa5 18:50 Follow up: Response: No adverse reaction aa5 Medication: 15:45 VIS not applicable for this client. aa5 Point of Care Testing: Blood Glucose: 14:01 Blood Glucose: 110 mg/dL; hb Ranges: Intake: Outcome: 16:40 Decision to Hospitalize by Provider. ec2 19:22 Admitted to ER Hold. [facility] for [facility] documentation. aa5 19:22 Condition: stable 19:22 Instructed on the need for admit, Demonstrated understanding of follow-up care, medications, 22:20 Patient left the ED. bm8 NIH Stroke Scale - NIH Stroke Score Date: 09/18/2024 Time: 13:45 Total Score = 4 10. Dysarthria (speech clarity - read or repeat words) - 1(Mild to Moderate) 11. Extinction and Inattention (visual/tactile/auditory/spatial/personal) - 0(No abnormality) 1a. Level of Consciousness (LOC) - 0(Alert) 1b. Level of Consciousness (LOC) (Month \\T\\ Age) - 0(Both) 1c. LOC Commands (Open \\T\\ Closes Eyes/Broom Stitcher) - 0(Both) 2. Best Gaze (Lateral Gaze Paresis) - 0(Normal) 3. Visual Field Loss - 0(No visual loss) 4. Facial Palsy - 3(Complete paralysis) 5a. Left Arm: Motor (10-second hold) - 0(No drift) 5b. Right Arm: Motor (10-second hold) - 0(No drift) 6a. Left Leg: Motor (5-second hold - always test supine) - 0(No drift) 6b. Right Leg: Motor (5-second hold - always test supine) - 0(No drift) 7. Limb Ataxia (finger/nose \\T\\ heel/morelos - test with eyes open) - 0(Absent) 8. Sensory Loss (pinprick arms/legs/face) - 0(Normal) 9. Best Language: Aphasia (description/naming/reading) - 0(No aphasia) Initials: ec2 NIH Stroke Scale - NIH Stroke Score Date: 09/18/2024 Time: 14:09 Total Score = 3 10. Dysarthria (speech clarity - read or repeat words) - 0(Normal) 11. Extinction and Inattention (visual/tactile/auditory/spatial/personal) - 0(No abnormality) 1a. Level of Consciousness (LOC) - 0(Alert) 1b. Level of Consciousness (LOC) (Month \\T\\ Age) - 0(Both) 1c. LOC Commands (Open \\T\\ Closes Eyes/Broom Stitcher) - 0(Both) 2. Best Gaze (Lateral Gaze Paresis) - 0(Normal) 3. Visual Field Loss - 0(No visual loss) 4. Facial Palsy 5a. Left Arm: Motor (10-second hold) - (No drift) 5b. Right Arm: Motor (10-second hold) - 3(No effort against gravity) 6a. Left Leg: Motor (5-second hold - always test supine) - 0(No drift) 6b. Right Leg: Motor (5-second hold - always test supine) - 0(No drift) 7. Limb Ataxia (finger/nose \\T\\ heel/morelos - test with eyes open) - 0(Absent) 8. Sensory Loss (pinprick arms/legs/face) - 0(Normal) 9. Best Language: Aphasia (description/naming/reading) - 0(No aphasia) Initials: NIH Stroke Scale - NIH Stroke Score Date: 09/18/2024 Time: 14:10 Total Score = 3 10. Dysarthria (speech clarity - read or repeat words) - 0(Normal) 11. Extinction and Inattention (visual/tactile/auditory/spatial/personal) - 0(No abnormality) 1a. Level of Consciousness (LOC) - 0(Alert) 1b. Level of Consciousness (LOC) (Month \\T\\ Age) - 0(Both) 1c. LOC Commands (Open \\T\\ Closes Eyes/Broom Stitcher) - 0(Both) 2. Best Gaze (Lateral Gaze Paresis) - 0(Normal) 3. Visual Field Loss - 0(No visual loss) 4. Facial Palsy - 3(Complete paralysis) 5a. Left Arm: Motor (10-second hold) - 0(No drift) 5b. Right Arm: Motor (10-second hold) - 0(No drift) 6a. Left Leg: Motor (5-second hold - always test supine) - 0(No drift) 6b. Right Leg: Motor (5-second hold - always test supine) - 0(No drift) 7. Limb Ataxia (finger/nose \\T\\ heel/morelos - test with eyes open) - 0(Absent) 8. Sensory Loss (pinprick arms/legs/face) - 0(Normal) 9. Best Language: Aphasia (description/naming/reading) - 0(No aphasia) Initials: aa5 NIH Stroke Scale - NIH Stroke Score Date: 09/18/2024 Time: 14:30 Total Score = 3 10. Dysarthria (speech clarity - read or repeat words) - 0(Normal) 11. Extinction and Inattention (visual/tactile/auditory/spatial/personal) - 0(No abnormality) 1a. Level of Consciousness (LOC) - 0(Alert) 1b. Level of Consciousness (LOC) (Month \\T\\ Age) - 0(Both) 1c. LOC Commands (Open \\T\\ Closes Eyes/Broom Stitcher) - 0(Both) 2. Best Gaze (Lateral Gaze Paresis) - 0(Normal) 3. Visual Field Loss - 0(No visual loss) 4. Facial Palsy - 3(Complete paralysis) 5a. Left Arm: Motor (10-second hold) - 0(No drift) 5b. Right Arm: Motor (10-second hold) - 0(No drift) 6a. Left Leg: Motor (5-second hold - always test supine) - 0(No drift) 6b. Right Leg: Motor (5-second hold - always test supine) - 0(No drift) 7. Limb Ataxia (finger/nose \\T\\ heel/morelos - test with eyes open) - 0(Absent) 8. Sensory Loss (pinprick arms/legs/face) - 0(Normal) 9. Best Language: Aphasia (description/naming/reading) - 0(No aphasia) Initials: aa5 NIH Stroke Scale - NIH Stroke Score Date: 09/18/2024 Time: 15:00 Total Score = 3 10. Dysarthria (speech clarity - read or repeat words) - 0(Normal) 11. Extinction and Inattention (visual/tactile/auditory/spatial/personal) - 0(No abnormality) 1a. Level of Consciousness (LOC) - 0(Alert) 1b. Level of Consciousness (LOC) (Month \\T\\ Age) - 0(Both) 1c. LOC Commands (Open \\T\\ Closes Eyes/Broom Stitcher) - 0(Both) 2. Best Gaze (Lateral Gaze Paresis) - 0(Normal) 3. Visual Field Loss - 0(No visual loss) 4. Facial Palsy - 3(Complete paralysis) 5a. Left Arm: Motor (10-second hold) - 0(No drift) 5b. Right Arm: Motor (10-second hold) - 0(No drift) 6a. Left Leg: Motor (5-second hold - always test supine) - 0(No drift) 6b. Right Leg: Motor (5-second hold - always test supine) - 0(No drift) 7. Limb Ataxia (finger/nose \\T\\ heel/morelos - test with eyes open) - 0(Absent) 8. Sensory Loss (pinprick arms/legs/face) - 0(Normal) 9. Best Language: Aphasia (description/naming/reading) - 0(No aphasia) Initials: aa5 NIH Stroke Scale - NIH Stroke Score Date: 09/18/2024 Time: 15:30 Total Score = 3 10. Dysarthria (speech clarity - read or repeat words) - 0(Normal) 11. Extinction and Inattention (visual/tactile/auditory/spatial/personal) - 0(No abnormality) 1a. Level of Consciousness (LOC) - 0(Alert) 1b. Level of Consciousness (LOC) (Month \\T\\ Age) - 0(Both) 1c. LOC Commands (Open \\T\\ Closes Eyes/Broom Stitcher) - 0(Both) 2. Best Gaze (Lateral Gaze Paresis) - 0(Normal) 3. Visual Field Loss - 0(No visual loss) 4. Facial Palsy - 3(Complete paralysis) 5a. Left Arm: Motor (10-second hold) - 0(No drift) 5b. Right Arm: Motor (10-second hold) - 0(No drift) 6a. Left Leg: Motor (5-second hold - always test supine) - 0(No drift) 6b. Right Leg: Motor (5-second hold - always test supine) - 0(No drift) 7. Limb Ataxia (finger/nose \\T\\ heel/morelos - test with eyes open) - 0(Absent) 8. Sensory Loss (pinprick arms/legs/face) - 0(Normal) 9. Best Language: Aphasia (description/naming/reading) - 0(No aphasia) Initials: aa5 NIH Stroke Scale - NIH Stroke Score Date: 09/18/2024 Time: 16:00 Total Score = 3 10. Dysarthria (speech clarity - read or repeat words) - 0(Normal) 11. Extinction and Inattention (visual/tactile/auditory/spatial/personal) - 0(No abnormality) 1a. Level of Consciousness (LOC) - 0(Alert) 1b. Level of Consciousness (LOC) (Month \\T\\ Age) - 0(Both) 1c. LOC Commands (Open \\T\\ Closes Eyes/Broom Stitcher) - 0(Both) 2. Best Gaze (Lateral Gaze Paresis) - 0(Normal) 3. Visual Field Loss - 0(No visual loss) 4. Facial Palsy - 3(Complete paralysis) 5a. Left Arm: Motor (10-second hold) - 0(No drift) 5b. Right Arm: Motor (10-second hold) - 0(No drift) 6a. Left Leg: Motor (5-second hold - always test supine) - 0(No drift) 6b. Right Leg: Motor (5-second hold - always test supine) - 0(No drift) 7. Limb Ataxia (finger/nose \\T\\ heel/morelos - test with eyes open) - 0(Absent) 8. Sensory Loss (pinprick arms/legs/face) - 0(Normal) 9. Best Language: Aphasia (description/naming/reading) - 0(No aphasia) Initials: aa5 NIH Stroke Scale - NIH Stroke Score Date: 09/18/2024 Time: 16:30 Total Score = 3 10. Dysarthria (speech clarity - read or repeat words) - 0(Normal) 11. Extinction and Inattention (visual/tactile/auditory/spatial/personal) - 0(No abnormality) 1a. Level of Consciousness (LOC) - 0(Alert) 1b. Level of Consciousness (LOC) (Month \\T\\ Age) - 0(Both) 1c. LOC Commands (Open \\T\\ Closes Eyes/Broom Stitcher) - 0(Both) 2. Best Gaze (Lateral Gaze Paresis) - 0(Normal) 3. Visual Field Loss - 0(No visual loss) 4. Facial Palsy - 3(Complete paralysis) 5a. Left Arm: Motor (10-second hold) - 0(No drift) 5b. Right Arm: Motor (10-second hold) - 0(No drift) 6a. Left Leg: Motor (5-second hold - always test supine) - 0(No drift) 6b. Right Leg: Motor (5-second hold - always test supine) - 0(No drift) 7. Limb Ataxia (finger/nose \\T\\ heel/morelos - test with eyes open) - 0(Absent) 8. Sensory Loss (pinprick arms/legs/face) - 0(Normal) 9. Best Language: Aphasia (description/naming/reading) - 0(No aphasia) Initials: aa5 NIH Stroke Scale - NIH Stroke Score Date: 09/18/2024 Time: 17:00 Total Score = 3 10. Dysarthria (speech clarity - read or repeat words) - 0(Normal) 11. Extinction and Inattention (visual/tactile/auditory/spatial/personal) - 0(No abnormality) 1a. Level of Consciousness (LOC) - 0(Alert) 1b. Level of Consciousness (LOC) (Month \\T\\ Age) - 0(Both) 1c. LOC Commands (Open \\T\\ Closes Eyes/Broom Stitcher) - 0(Both) 2. Best Gaze (Lateral Gaze Paresis) - 0(Normal) 3. Visual Field Loss - 0(No visual loss) 4. Facial Palsy - 3(Complete paralysis) 5a. Left Arm: Motor (10-second hold) - 0(No drift) 5b. Right Arm: Motor (10-second hold) - 0(No drift) 6a. Left Leg: Motor (5-second hold - always test supine) - 0(No drift) 6b. Right Leg: Motor (5-second hold - always test supine) - 0(No drift) 7. Limb Ataxia (finger/nose \\T\\ heel/morelos - test with eyes open) - 0(Absent) 8. Sensory Loss (pinprick arms/legs/face) - 0(Normal) 9. Best Language: Aphasia (description/naming/reading) - 0(No aphasia) Initials: aa5 NIH Stroke Scale - NIH Stroke Score Date: 09/18/2024 Time: 17:30 Total Score = 3 10. Dysarthria (speech clarity - read or repeat words) - 0(Normal) 11. Extinction and Inattention (visual/tactile/auditory/spatial/personal) - 0(No abnormality) 1a. Level of Consciousness (LOC) - 0(Alert) 1b. Level of Consciousness (LOC) (Month \\T\\ Age) - 0(Both) 1c. LOC Commands (Open \\T\\ Closes Eyes/Broom Stitcher) - 0(Both) 2. Best Gaze (Lateral Gaze Paresis) - 0(Normal) 3. Visual Field Loss - 0(No visual loss) 4. Facial Palsy - 3(Complete paralysis) 5a. Left Arm: Motor (10-second hold) - 0(No drift) 5b. Right Arm: Motor (10-second hold) - 0(No drift) 6a. Left Leg: Motor (5-second hold - always test supine) - 0(No drift) 6b. Right Leg: Motor (5-second hold - always test supine) - 0(No drift) 7. Limb Ataxia (finger/nose \\T\\ heel/morelos - test with eyes open) - 0(Absent) 8. Sensory Loss (pinprick arms/legs/face) - 0(Normal) 9. Best Language: Aphasia (description/naming/reading) - 0(No aphasia) Initials: aa5 NIH Stroke Scale - NIH Stroke Score Date: 09/18/2024 Time: 18:00 Total Score = 3 10. Dysarthria (speech clarity - read or repeat words) - 0(Normal) 11. Extinction and Inattention (visual/tactile/auditory/spatial/personal) - 0(No abnormality) 1a. Level of Consciousness (LOC) - 0(Alert) 1b. Level of Consciousness (LOC) (Month \\T\\ Age) - 0(Both) 1c. LOC Commands (Open \\T\\ Closes Eyes/Broom Stitcher) - 0(Both) 2. Best Gaze (Lateral Gaze Paresis) - 0(Normal) 3. Visual Field Loss - 0(No visual loss) 4. Facial Palsy - 3(Complete paralysis) 5a. Left Arm: Motor (10-second hold) - 0(No drift) 5b. Right Arm: Motor (10-second hold) - 0(No drift) 6a. Left Leg: Motor (5-second hold - always test supine) - 0(No drift) 6b. Right Leg: Motor (5-second hold - always test supine) - 0(No drift) 7. Limb Ataxia (finger/nose \\T\\ heel/morelos - test with eyes open) - 0(Absent) 8. Sensory Loss (pinprick arms/legs/face) - 0(Normal) 9. Best Language: Aphasia (description/naming/reading) - 0(No aphasia) Initials: aa5 NIH Stroke Scale - NIH Stroke Score Date: 09/18/2024 Time: 18:30 Total Score = 3 10. Dysarthria (speech clarity - read or repeat words) - 0(Normal) 11. Extinction and Inattention (visual/tactile/auditory/spatial/personal) - 0(No abnormality) 1a. Level of Consciousness (LOC) - 0(Alert) 1b. Level of Consciousness (LOC) (Month \\T\\ Age) - 0(Both) 1c. LOC Commands (Open \\T\\ Closes Eyes/Broom Stitcher) - 0(Both) 2. Best Gaze (Lateral Gaze Paresis) - 0(Normal) 3. Visual Field Loss - 0(No visual loss) 4. Facial Palsy - 3(Complete paralysis) 5a. Left Arm: Motor (10-second hold) - 0(No drift) 5b. Right Arm: Motor (10-second hold) - 0(No drift) 6a. Left Leg: Motor (5-second hold - always test supine) - 0(No drift) 6b. Right Leg: Motor (5-second hold - always test supine) - 0(No drift) 7. Limb Ataxia (finger/nose \\T\\ heel/morelos - test with eyes open) - 0(Absent) 8. Sensory Loss (pinprick arms/legs/face) - 0(Normal) 9. Best Language: Aphasia (description/naming/reading) - 0(No aphasia) Initials: aa5 NIH Stroke Scale - NIH Stroke Score Date: 09/18/2024 Time: 19:00 Total Score = 3 10. Dysarthria (speech clarity - read or repeat words) - 0(Normal) 11. Extinction and Inattention (visual/tactile/auditory/spatial/personal) - 0(No abnormality) 1a. Level of Consciousness (LOC) - 0(Alert) 1b. Level of Consciousness (LOC) (Month \\T\\ Age) - 0(Both) 1c. LOC Commands (Open \\T\\ Closes Eyes/Broom Stitcher) - 0(Both) 2. Best Gaze (Lateral Gaze Paresis) - 0(Normal) 3. Visual Field Loss - 0(No visual loss) 4. Facial Palsy - 3(Complete paralysis) 5a. Left Arm: Motor (10-second hold) - 0(No drift) 5b. Right Arm: Motor (10-second hold) - 0(No drift) 6a. Left Leg: Motor (5-second hold - always test supine) - 0(No drift) 6b. Right Leg: Motor (5-second hold - always test supine) - 0(No drift) 7. Limb Ataxia (finger/nose \\T\\ heel/moreols - test with eyes open) - 0(Absent) 8. Sensory Loss (pinprick arms/legs/face) - 0(Normal) 9. 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 Gait is steady, Speech is normal, Facial droop on left, Paralysis noted to left side of face began at 1250 as reported by daughter. . Denies weakness blurred vision dizziness, difficulty swallowing, paresthesias numbness headache photophobia diplopia, aa5 16:20 16:19 The onset of the patients symptoms was September 18, 2024 at 12:50 aa5 aa5
--- NOTE | 2024-09-18 18:39 | P.HP ---
Certification for Inpatient Patient admitted to: Inpatient With expected LOS: >2 Midnights Patient will require the following post-hospital care: None Practitioner: I am a practitioner with admitting privileges, knowledge of patient current condition, hospital course, and medical plan of care. Services: Services provided to patient in accordance with Admission requirements found in Title 42 Section 412.3 of the Code of Federal Regulations Patient History Date of Service: 09/18/24 Reason for admission: HTN Emergency History of Present Illness: Patient is a 54 year female with no known past medical history who presents to the ED with complaints of left sided facial weakness. Patient states that she was home watching her grandchildren and all of a sudden her daughter noticed her face "changing". Patient denied any other related symptoms. Patient and daughter reported facial droop first noticed at approximately 1250PM. ED workup revealed patient hypertensive at 238/134, mildly elevated INR, mild hypokalemia 3.2, Troponin 72.8, CT of head, CXR, and CTA neck/angio were negative for acute findings. Patient was placed on cardene gtt and will now be admitted to ICU for hypertensive emergency and further work up at this time. Allergies No Known Allergies Allergy (Unverified 09/18/24 18:24) Home medications list reviewed: No - Past Medical/Surgical History Has patient received pneumonia vaccine in the past: No Diabetic: No Past Medical History: Patient denies medical history Past Surgical History: Patient denies surgical history Psychosocial/ Personal History: Lives with family - Family History Family History: Reviewed- Non-Contributory - Social History Smoking Status: Never smoker Smoking therapy provided: No Patient receptive to therapy: No Alcohol use: No CD- Drugs: No Caffeine use: No Place of Residence: Home Review of Systems 10-point ROS is otherwise unremarkable Neurological: Weakness (Left facial weakness), As per HPI Physical Examination - Physical Exam General: Alert, In no apparent distress, Oriented x3 HEENT: Atraumatic, PERRLA, Mucous membr. moist/pink, EOMI, Sclerae nonicteric Neck: Supple, 2+ carotid pulse no bruit, No LAD Respiratory: Clear to auscultation bilaterally, Normal air movement Cardiovascular: Regular rate/rhythm, Normal S1 S2 Capillary refill: <2 Seconds Gastrointestinal: Normal bowel sounds, No tenderness Musculoskeletal: No tenderness Integumentary: No rashes Neurological: Normal gait, Normal speech, Normal strength at 5/5 x4 extr, Normal tone, Normal affect, Other (Mild left facial droop. NIH 1) - Studies Laboratory Data (last 24 hrs) 09/18/24 09/18/24 09/18/24 14:02 14:02 14:02 WBC 7.30 Hgb 13.5 Hct 40.1 Plt Count 201 PT 13.4 H INR 1.28 APTT 32.3 Sodium 140 Potassium 3.2 L BUN 12 Creatinine 0.97 Glucose 113 H Magnesium 2.1 Assessment and Plan - Problems (Diagnosis) (1) Hypertensive emergency Current Visit: Yes Status: Acute (2) Hypokalemia Current Visit: Yes Status: Acute (3) Facial weakness Current Visit: Yes Status: Acute - Plan Hypertensive Emergency Elevated Troponin -Blood pressure 238/134 -Cardene gtt initiated in ED, continue with goal BP 220/110 -Admit to ICU -Continue to monitor BP per unit protocol -Consider renal biopsy -Troponin 72.8, continue to trend -Cardiology consulted, follow up for recs Left facial weakness CVA R/o -Onset approximately 1250pm -Offered and refused TNK in ED -Continue neuro checks -CTH;without acute findings -CTA chest/neck; without acute findings -MRI head ordered for AM, needs follow up -TSH,lipid panel and LFT's ordered -Echocardiogram ordered -Failed initial bedside swallow, follow up needed and strict NPO for now -Neurology consulted, follow up for recs Hypokalemia -K+3.2, repleted -Mag level ordered -Continue to monitor electrolytes DVT PPx: Lovenox Code Status: Full Code Discharge Plan: Home Plan to discharge in: 48 Hours - Advance Directives Does patient have a Living Will: No Does patient have a Durable POA for Healthcare: No - Code Status/Comfort Care Code Status Assessed: Yes (Full) Critical Care: Yes Time Spent Managing Pts Care (In Minutes): 65
[2024-09-18] MEDS: ATORVASTATIN 20 MG TAB PO SCH (19:29)
[2024-09-18 20:18] LABS: T4,Total 10.3 ug/dL (4.8-13.9); Thyroid Stimulating Hormone 0.628 uIU/mL (0.358-3.740)
[2024-09-18 20:24] LABS: Troponin High Sensitivity 108.7 pg/mL (<58.9)
[2024-09-18 23:21] VITALS: O2SAT 97
[2024-09-19 05:41] LABS: Absolute Lymphocytes (CBC) 1.3 K/uL (0.7-4.9); Absolute Monocytes 0.4 K/uL (0.1-1.3); Absolute Neutrophil 4.6 K/uL (1.8-8.0); Basophils % 0.7 % (0-1.3); Eosinophils % 0.6 % (0-4.4); Hematocrit 38.1 % (36.0-45.0); Hemoglobin 12.7 g/dL (12.0-15.0); Lymphocytes % 20.4 % (15.3-44.8); MCH 30.5 pg (27.0-35.0); MCHC 33.3 g/dL (32.0-36.0); MCV 91.6 fL (80-100); MPV 9.5 fL (7.6-11.3); Monocytes % 6.8 % (3.3-12.3); Neutrophils % 71.5 % (41.7-73.7); Nucleated Red Blood Cells % 0.1 % (0-0); Platelets 195 thou/uL (152-406); RBC Red Blood Cell Count 4.16 M/uL (3.86-4.86); Red Cell Distribution Width 13.5 % (12.1-15.2)
[2024-09-19 06:00] LABS: Albumin 3.4 g/dL (3.4-5.0); Albumin/Globulin Ratio 0.8 (1.1-1.8); Anion Gap 6.3 mEq/L (5.0-15.0); Globulin 4.3 g/dL (2.3-3.5); Magnesium 2.2 mg/dL (1.6-2.4); Phosphorus 3.5 mg/dL (2.5-4.9); Potassium 3.3 mEq/L (3.5-5.1); Protein, Total 7.7 g/dL (6.4-8.2)
[2024-09-19 06:02] LABS: Troponin High Sensitivity 101.7 pg/mL (<58.9)
--- NOTE | 2024-09-19 06:45 | P.PN ---
Date of Service: 09/19/24 Subjective: Patient with significant anxiety and claustrophobia, scared she won't be able to sit still long enough for MRI feels "ok" nothing worse / no new symptoms ROS: 10 point ROS as noted above, otherwise negative Physical Exam: GEN: Alert, oriented, NAD CV: Regular rate and rhythm, no edema Pulm: Nonlabored respirations on room air, clear bilaterally ABD: soft, nontender, nondistended Neuro: left facial weakness - eyelid/eyebrow, lower facial droop Problem List: Left Facial Droop, concern for possible TIA/CVA Hypertensive Emergency Anxiety Elevated Troponin Hypokalemia Left Facial Droop, concern for possible TIA/CVA vs Haerd's palsy Hypertensive Emergency Anxiety on admission, presents with left-sided facial droop that started less than 1 hour of ER arrival. Denies fall/trauma. Not on any home meds. Patient and family were offered TNK in ED, but refused. BP significantly elevated in 230-240s in ED. Started on a nicardipine drip in ED; off drip since coming to ICU CT brain, CTA head/neck, CXR: all negative for any acute findings. Echo ordered to eval EF / stenosis. MRI brain ordered to rule out CVA, further eval. Patient with significant anxiety and claustrophobia, scared she won't be able to sit still long enough for MRI. Discussed possibility of giving mild sedative/benzo prior to MRI if she is ultimately agreeable. Likely Heard's palsy Dr. Godwin, Neuro consulted reportedly failed swallow screen in ED, but patient reports no issue in ED repeat bedside swallow asa, statin, plavix once able to swallow PT/Speech eval Elevated Troponin Troponin's mildly elevated but trended flat; peaked at 108 EKG in ED noted sinus rhythm, no STEMI criteria. Monitor on telemetry. Cardiology consulted Hypokalemia Monitor and replete as needed. VTE: Lovenox Code: Full Dispo: Home Time Spent Managing Pts Care (In Minutes): 55
[2024-09-19] MEDS: ENOXAPARIN 40 MG/0.4 ML SQ SCH (09:07)
[2024-09-19] MEDS: ASPIRIN EC 81 MG TAB PO SCH (09:07)
[2024-09-19] MEDS: CLOPIDOGREL 75 MG TABLET PO SCH (09:07)
--- NOTE | 2024-09-19 11:40 | P.CNS ---
Date of Consult: 09/19/24 Chief Complaint: HTN Emergency History of Present Illness: Pateint with PMH of HTN, presented with suspected stroke, patient denies chest pain, no palpitations, no syncope, no cardiac complains. Allergies No Known Allergies Allergy (Unverified 09/18/24 18:24) Home medications list reviewed: Yes Home Medications: NK [No Home Meds] 09/19/24 - Past Medical/Surgical History Diabetic: No -: Psychosocial/ Personal History: Lives with family - Family History Father Medical History: Hypertension Mother Medical History: Diabetes Brother Medical History: Hypertension - Social History Alcohol use: No CD- Drugs: No Caffeine use: Yes Place of Residence: Home Review of Systems 10-point ROS is otherwise unremarkable Physical Examination Temp Pulse Resp BP Pulse Ox 97.4 F 72 18 180/100 H 98 09/19/24 08:00 09/19/24 10:00 09/19/24 10:00 09/19/24 10:00 09/19/24 10:00 General: Alert, In no apparent distress HEENT: Atraumatic, PERRLA, Mucous membr. moist/pink, EOMI, Sclerae nonicteric Neck: Supple, 2+ carotid pulse no bruit, No LAD, Without JVD or thyroid abnormality Respiratory: Clear to auscultation bilaterally, Normal air movement Cardiovascular: Regular rate/rhythm, Normal S1 S2 Gastrointestinal: Normal bowel sounds, No tenderness Musculoskeletal: No tenderness Integumentary: No rashes Neurological: Normal gait, Normal speech, Normal tone, Normal affect Lymphatics: No axilla or inguinal lymphadenopathy Laboratory Data (last 24 hrs) 09/18/24 09/18/24 09/18/24 14:02 14:02 14:02 WBC 7.30 Hgb 13.5 Hct 40.1 Plt Count 201 PT 13.4 H INR 1.28 APTT 32.3 Sodium 140 Potassium 3.2 L BUN 12 Creatinine 0.97 Glucose 113 H Magnesium 2.1 - Problems (1) Hypertensive emergency Current Visit: Yes Status: Acute Plan: patient was not on any medications before. lopressor 25 mg po BID Losartan 25 mg daily get Echo
[2024-09-19] MEDS: LORazepam 2 MG/ML VIAL IV PRN (12:05)
--- NOTE | 2024-09-19 13:18 | RAD REPORT ---
EXAMINATION: MRI BRAIN WITHOUT CONTRAST CLINICAL INDICATION: Left facial droop TECHNIQUE: Multiplanar multisequence MR images of the brain were obtained without intravenous contras t. Unless otherwise specified, incidental findings do not require dedicated imaging follow-up. COMPARISON: September 18, 2024 FINDINGS: Mild to moderate abnormal signal within periventricular, deep and subcortical white matter probably i schemic changes secondary to small vessel disease. Diffusion weighted/ADC mapping does not demonstrate evidence of an acute infarction. Ventricles are normal caliber. No extra-axial fluid collection. No fluid within the sinuses/mastoid seen. Mild ethmoid sinusitis. IMPRESSION: No acute intracranial abnormalities displayed
[2024-09-19] MEDS: LOSARTAN POTASSIUM 50 MG TABLET PO ONE (15:30)
[2024-09-19 18:24] VITALS: BMI 44.9
[2024-09-19] MEDS: ACYCLOVIR 400 MG TABLET PO SCH (21:24)
--- NOTE | 2024-09-20 01:30 | CON ---
Reason For Consultation: Consultation was called because of possible stroke. History Of Present Illness: Ms. Castaneda is a 54-year-old patient, who has not seen a doctor in many de cades and likely has undiagnosed hypertension, presented to the emergency department with left facial weakness. There was no left hand weakness. She did have some difficulty moving her face, smiling, and had difficulty closing the left eye. She was at home watching her grandchildren when she was nemo d by her daughter that her face began changing. She noticed a facial droop around 12:50 and was brou ght in to [facility]. Blood pressure at that time was elevated 238/134, and she had a mildl y elevated INR, hypokalemia to 3.2. CT angiogram of head and neck were negative for any acute ischem ic hemorrhagic changes. She did have a Cardene drip and was admitted to ICU for hypertensive emergen cy and further workup. The patient was not necessarily considered to have a stroke as she had very s brandon left hand despite the marked left facial weakness. Past Medical History: Undiagnosed hypertension. Allergies: NO KNOWN DRUG ALLERGIES. Family History: Noncontributory. Social History: Denies any alcohol, tobacco, or IV drug use. Review of Systems: She has difficulty closing the left eye, difficulty pursing the lips. She has drooping noted across the left corner of her mouth and the left forehead does not move well as she smiles. Denies any hear ing or taste difficulties. No other positives on systems review. Physical Examination: Vital Signs: Blood pressure 189/110, pulse 101, respiratory rate 15, temperature 97.6, oxygen satura tion 98%. General: Ms. Castaneda is resting in ICU. She is in no significant distress. HEENT: She is normocephalic, atraumatic. Sclerae anicteric. Oropharynx pink and moist. Neck: Supple. Chest: Clear. Heart: Regular. Extremities: Show no clubbing, cyanosis, or edema. Neurologic: She has a decreased movement of the left forehead on attempting to look upwards. She powell s decreased eye closure strength on the left and decreased movement of the left nasolabial fold. Oth erwise, she has intact extraocular movements, full visual su to confrontation and pupils are equa lly round, reactive to light and accommodation. Her tongue is equally strong on both sides when push ed against the inside of her cheek. Midline palate. Motor examination in the upper and lower extrem ities is intact fully, strong 5/5 proximally and distally. Sensation of the face is intact bilateral ly in all distributions V1, V2, and in V3. Reflexes are symmetric. Coordination is intact and gait, she will be ambulated with gait belt by the physical therapist. Laboratory Studies: Complete blood count with differential is completely normal. INR 1.28. The flory lillian, mild hypokalemia of 3.2 to 3.3. Sodium normal. Her BUN and creatinine are normal. Hemoglob in A1c of 5.3. ALT 16, ALT 19, alkaline phosphatase is 102. She did have elevated troponins and is followed by the cardiology service. Normal thyroid function. LDL cholesterol 105, HDL 46, total cho lesterol 168. Her brain MRI shows no acute ischemic hemorrhagic findings. CT angiogram of the head and neck, no significant abnormalities identified. Assessment: Ms. 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 She has no evidence of a stroke. However, she does have hypertensive emergency and she is managed for that by the hospital ist. She should begin with the antiviral medication and also on steroid to help her with a quick rec overy. Continue with Plavix, aspirin, folic acid, and statin. Given her risk of lacunar strokes bec ause of uncontrolled hypertension, also she is at risk of hemorrhagic strokes and after blood pressure is managed, she may follow up in Dr. Godwin's clinic within the month. UMAIR/JOÃO Voice ID: [id number] Report ID: [id number]
[2024-09-20] MEDS: METOPROLOL TAR 25 MG TAB PO SCH (06:00)
[2024-09-20 06:03] LABS: Albumin 3.3 g/dL (3.4-5.0); Albumin/Globulin Ratio 0.8 (1.1-1.8); Anion Gap 7.6 mEq/L (5.0-15.0); Bilirubin Total 1.2 mg/dL (0.2-1.0); Globulin 4.3 g/dL (2.3-3.5); Potassium 3.6 mEq/L (3.5-5.1); Protein, Total 7.6 g/dL (6.4-8.2)
[2024-09-20 06:04] LABS: Absolute Eosinophils 0.1 K/uL (0-0.5); Absolute Lymphocytes (CBC) 1.5 K/uL (0.7-4.9); Absolute Monocytes 0.4 K/uL (0.1-1.3); Absolute Neutrophil 3.4 K/uL (1.8-8.0); Basophils % 0.6 % (0-1.3); Eosinophils % 1.3 % (0-4.4); Hemoglobin 13.1 g/dL (12.0-15.0); Lymphocytes % 27.1 % (15.3-44.8); MCH 30.4 pg (27.0-35.0); MCHC 32.8 g/dL (32.0-36.0); MCV 92.4 fL (80-100); Monocytes % 8.2 % (3.3-12.3); Neutrophils % 62.8 % (41.7-73.7); Nucleated Red Blood Cells % 0.2 % (0-0); Platelets 216 thou/uL (152-406); RBC Red Blood Cell Count 4.32 M/uL (3.86-4.86); Red Cell Distribution Width 13.5 % (12.1-15.2)
[2024-09-20] MEDS: predniSONE 20 MG TAB PO SCH (08:35)
[2024-09-20] MEDS: POTASSIUM 25 MEQ EFFERV TAB PO ONE (08:35)
[2024-09-20] MEDS: LOSARTAN POTASSIUM 50 MG TABLET PO SCH ×2 (08:36→19:53)
[2024-09-20] MEDS: AMLODIPINE 10 MG TAB PO SCH (10:00)
[2024-09-20] MEDS: Nicardipine/NS 25 MG/250 ML KIT IV SCH (10:13)
--- NOTE | 2024-09-20 12:09 | P.PN ---
Subjective Date of Service: 09/20/24 Chief Complaint: HTN Emergency Subjective: No new changes, No C/O voiced, Tolerating diet, Ambulating, Improving Review of Systems 10-point ROS is otherwise unremarkable Physical Examination - Vital Signs Temperature: 97.5 F Blood Pressure: 199/115 Pulse: 64 Respirations: 16 Pulse Ox (%): 98 - Physical Exam General: Alert, In no apparent distress HEENT: Atraumatic, PERRLA, EOMI Neck: Supple, JVD not distended Respiratory: Clear to auscultation bilaterally, Normal air movement Cardiovascular: Regular rate/rhythm, Normal S1 S2 Gastrointestinal: Normal bowel sounds, No tenderness Musculoskeletal: No tenderness Integumentary: No rashes Neurological: Normal speech, Normal tone, Normal affect Lymphatics: No axilla or inguinal lymphadenopathy - Studies Medications List Reviewed: Yes Assessment And Plan - Current Problems (Diagnosis) (1) Hypertensive emergency Current Visit: Yes Status: Acute Plan: patient was not on any medications before. increase lopressor to 50 mg po BID increase Losartan to 50 mg daily Echo shows normal LV systolic function.
[2024-09-20] MEDS: LOSARTAN POTASSIUM 50 MG TABLET PO ONE (13:03)
[2024-09-20] MEDS: METOPROLOL TAR 25 MG TAB PO ONE (13:03)
--- NOTE | 2024-09-20 13:05 | ECHO ---
HEIGHT: 5 ft 0 in WEIGHT: 230 lb 0 oz DATE OF STUDY: 09/20/[address]: Sangeetha Orozco, LICENSED CERTIFIED ORTHOTIST-BC 2-DIMENSIONAL: YES M.MODE: YES DOPPLER: YES COLOR FLOW: YES TDS: NO PORTABLE: YES DEFINITY: NO BUBBLE STUDY: NO DIAGNOSIS: STROKE CARDIAC HISTORY: CATHERIZATION: SURGERY: PROSTHETIC VALVE: PACEMAKER: MEASUREMENTS (cm) DIASTOLIC (NORMALS) SYSTOLIC (NORMALS) IVSd 1.2 (0.6-1.2) LA Diam 3.4 (1.9-4.0) LVEF 60% LVIDd 4.6 (3.5-5.7) LVIDs 3.1 (2.0-3.5) %FS 32% LVPWd 1.1 (0.6-1.2) Ao Diam 2.7 (2.0-3.7) 2 DIMENSIONAL ASSESSMENT: RIGHT ATRIUM: NORMAL LEFT ATRIUM: NORMAL RIGHT VENTRICLE: NORMAL LEFT VENTRICLE: NORMAL TRICUSPID VALVE: TRACE OF TRICUSPID REGURITATION MITRAL VALVE: NORMAL PULMONIC VALVE: NORMAL AORTIC VALVE: NORMAL PERICARDIAL EFFUSION: NONE AORTIC ROOT: NORMAL LEFT VENTRICULAR WALL MOTION: NORMAL. DOPPLER/COLOR FLOW: NORMAL. COMMENTS: 1. MILD LEFT VENTRICULAR HYPERTROPHY. 2. NORMAL LEFT VENTRICULAR SYSTOLIC FUNCTION, EJECTION FRACTION 60-65%, NORMAL WALL MOTION. 3. NORMAL DIASTOLIC FUNCTION. TECHNOLOGIST: ALDO BLANC
--- NOTE | 2024-09-20 16:11 | P.PN ---
Subjective Date of Service: 09/20/24 Chief Complaint: HTN Emergency Patient blood pressure still significantly elevated. Mild improvement in right facial droop. Patient speech is better. Physical Examination - Vital Signs Temperature: 97.5 F Blood Pressure: 199/115 Pulse: 64 Respirations: 16 Pulse Ox (%): 98 - Studies Medications List Reviewed: Yes Assessment And Plan - Plan Physical Exam: GEN: Alert, oriented, NAD CV: Regular rate and rhythm, no edema Pulm: Nonlabored respirations on room air, clear bilaterally ABD: soft, nontender, nondistended Neuro: left lower facial weakness. No limb weakness Problem List: Left Facial Droop, concern for possible TIA/CVA Hypertensive Emergency Anxiety Elevated Troponin Hypokalemia Plan: Left Facial Droop, concern for possible TIA/CVA vs Heard's palsy Hypertensive Emergency Anxiety Patient and family were offered TNK in ED, but refused. BP significantly elevated in 230-240s in ED. Started on a nicardipine drip in ED; off drip since coming to ICU CT brain, CTA head/neck, CXR: all negative for any acute findings. Echo: Mild ventricular hypertrophy, normal EF. MRI brain: Negative for acute stroke Likely Heard's palsy Dr. Godwin, Neuro input appreciated. Patient started on steroid and antiviral. Patient is tolerating diet. Continue asa, statin, plavix. Elevated Troponin Troponin's mildly elevated but trended flat; peaked at 108 EKG in ED noted sinus rhythm, no STEMI criteria. Elevated troponin likely secondary to severe hypertension. Cardiology input appreciated Monitor on telemetry. Hypokalemia Monitor and replete as needed. VTE: Lovenox Code: Full Dispo: Home Time Spent Managing Pts Care (In Minutes): 39
[2024-09-20] MEDS: METOPROLOL TAR 50 MG TAB PO SCH (19:54)
[2024-09-21 05:39] LABS: Absolute Lymphocytes (CBC) 1.2 K/uL (0.7-4.9); Absolute Monocytes 0.5 K/uL (0.1-1.3); Absolute Neutrophil 7.1 K/uL (1.8-8.0); Basophils % 0.4 % (0-1.3); Eosinophils % 0.1 % (0-4.4); Hematocrit 40.6 % (36.0-45.0); Hemoglobin 13.5 g/dL (12.0-15.0); Lymphocytes % 13.4 % (15.3-44.8); MCH 30.3 pg (27.0-35.0); MCHC 33.2 g/dL (32.0-36.0); MCV 91.5 fL (80-100); MPV 8.6 fL (7.6-11.3); Monocytes % 6.1 % (3.3-12.3); Nucleated Red Blood Cells % 0.1 % (0-0); Platelets 232 thou/uL (152-406); RBC Red Blood Cell Count 4.44 M/uL (3.86-4.86); Red Cell Distribution Width 13.3 % (12.1-15.2)
[2024-09-21 05:59] LABS: Albumin 3.4 g/dL (3.4-5.0); Albumin/Globulin Ratio 0.8 (1.1-1.8); Anion Gap 7.3 mEq/L (5.0-15.0); Bilirubin Total 0.9 mg/dL (0.2-1.0); Globulin 4.3 g/dL (2.3-3.5); Potassium 3.3 mEq/L (3.5-5.1); Protein, Total 7.7 g/dL (6.4-8.2)
[2024-09-21] MEDS: HYDRALAZINE HCL 20 MG/ML VIAL IV PRN (06:14)
[2024-09-21] MEDS: POTASSIUM CL SA 10 MEQ TAB PO ONE (10:00)
[2024-09-21] MEDS: HYDRALAZINE HCL 25 MG TABLET PO SCH (13:56)
--- NOTE | 2024-09-21 18:31 | P.DS ---
Admission Date: 09/18/24 Discharge Date: 09/21/24 Disposition: ROUTINE DISCHARGE Discharge Condition: FAIR Reason for Admission: HTN Emergency Brief History of Present Illness: Patient is a 54 year female with no known past medical history who presents to the ED with complaints of left sided facial weakness. Patient states that she was home watching her grandchildren and all of a sudden her daughter noticed her face "changing". Patient denied any other related symptoms. ED workup revealed patient hypertensive at 238/134, mildly elevated INR, mild hypokalemia 3.2, Troponin 72.8, CT of head, CXR, and CTA neck/angio were negative for acute findings. Patient was placed on cardene gtt and admitted to ICU for hypertensive emergency for further management. Hospital Course: Problem List: Left Facial Droop, concern for possible TIA/CVA Hypertensive Emergency Anxiety Elevated Troponin Hypokalemia Plan: Left Facial Droop, concern for possible TIA/CVA vs Heard's palsy Hypertensive Emergency Anxiety Patient and family were offered TNK in ED, but they refused. BP significantly elevated in 230-240s in ED. Patient treated with nicardipine drip, started on started on amlodipine, metoprolol, losartan and hydralazine. Nicardipine drip weaned off. CT brain, CTA head/neck, CXR: all negative for any acute findings. Echo: Mild ventricular hypertrophy, normal EF. MRI brain: Negative for acute stroke Patient seen by Dr. Godwin, diagnosed with Heard's palsy Patient started on steroid and antiviral. Left facial droop improved during the hospital stay. Patient had no problem with swallowing. She had slurred speech which resolved. Patient is tolerating diet. Given patient risk factors for stroke she was started on asa, statin, plavix. Elevated Troponin Troponin's mildly elevated but trended flat; peaked at 108 EKG in ED noted sinus rhythm, no STEMI criteria. Elevated troponin likely secondary to severe hypertension. Patient was seen and evaluated by cardiology. Vital Signs/Physical Exam: Temp Pulse Resp BP Pulse Ox 97.5 F 74 19 156/88 H 96 09/21/24 16:00 09/21/24 16:00 09/21/24 16:00 09/21/24 16:00 09/21/24 16:00 General: Alert, In no apparent distress, Oriented x3 HEENT: Mucous membr. moist/pink Neck: JVD not distended Respiratory: Clear to auscultation bilaterally, Normal air movement Cardiovascular: No edema, Regular rate/rhythm, Normal S1 S2 Gastrointestinal: Normal bowel sounds, Soft and benign, Non-distended Musculoskeletal: No swelling Neurological: Normal speech, Other (Left facial droop) Laboratory Data at Discharge: WBC 8.80 thou/uL (4.3-10.9) 09/21/24 05:25 Hgb 13.5 g/dL (12.0-15.0) 09/21/24 05:25 Hct 40.6 % (36.0-45.0) 09/21/24 05:25 Plt Count 232 thou/uL (152-406) 09/21/24 05:25 PT 13.4 SECONDS (9.4-12.5) H 09/18/24 14:02 INR 1.28 09/18/24 14:02 APTT 32.3 SECONDS (24.3-36.9) 09/18/24 14:02 Sodium 139 mEq/L (136-145) 09/21/24 05:25 Potassium 3.3 mEq/L (3.5-5.1) L 09/21/24 05:25 BUN 21 mg/dL (7-18) H 09/21/24 05:25 Creatinine 0.99 mg/dL (0.55-1.02) 09/21/24 05:25 Glucose 106 mg/dL (74-106) 09/21/24 05:25 Phosphorus 3.5 mg/dL (2.5-4.9) 09/19/24 05:30 Magnesium 2.2 mg/dL (1.6-2.4) 09/19/24 05:30 Total Bilirubin 0.9 mg/dL (0.2-1.0) 09/21/24 05:25 AST 11 U/L (15-37) L 09/21/24 05:25 ALT 18 U/L (13-56) 09/21/24 05:25 Alkaline Phosphatase 97 U/L (45-117) 09/21/24 05:25 Triglycerides 84 mg/dL (<150) 09/19/24 05:30 Cholesterol 168 mg/dL (<200) 09/19/24 05:30 HDL Cholesterol 46 mg/dL (40-60) 09/19/24 05:30 Cholesterol/HDL Ratio 3.65 09/19/24 05:30 Home Medications: Amlodipine [Norvasc*] 10 mg PO DAILY #30 tab 09/21/24 Atorvastatin Calcium [Lipitor*] 40 mg PO BEDTIME #30 tab 09/21/24 Clopidogrel Bisulfate [Plavix*] 75 mg PO DAILY #30 tab 09/21/24 Hydralazine [Apresoline*] 25 mg PO TID #90 tab 09/21/24 Losartan Potassium [Cozaar*] 50 mg PO BID #60 tab 09/21/24 Metoprolol Tartrate [Lopressor*] 50 mg PO BID #60 tab 09/21/24 Valacyclovir HCl [Valacyclovir] 1,000 mg PO TID #21 tab 09/21/24 predniSONE [Prednisone*] 60 mg PO DAILY #21 tab 09/21/24 New Medications: Hydralazine [Apresoline*] 25 mg PO TID #90 tab Losartan Potassium [Cozaar*] 50 mg PO BID #60 tab Atorvastatin Calcium [Lipitor*] 40 mg PO BEDTIME #30 tab Metoprolol Tartrate [Lopressor*] 50 mg PO BID #60 tab Amlodipine [Norvasc*] 10 mg PO DAILY #30 tab Clopidogrel Bisulfate [Plavix*] 75 mg PO DAILY #30 tab predniSONE [Prednisone*] 60 mg PO DAILY #21 tab Valacyclovir HCl [Valacyclovir] 1,000 mg PO TID #21 tab Diet: AHA Activity: Fall precautions Followup: Abelino Godwin MD [ASSOCIATE-ACTIVE - CAN ADMIT] - 1-2 Weeks NONE,NONE [Primary Care Provider] - 1-2 Weeks Isaak Angelo MD [ACTIVE - CAN ADMIT] - 1-2 Weeks Time spent managing pt's care (in minutes): 33
[2024-09-21] MEDS: LABETALOL 20 MG/4ML SYRINGE IV ONE (22:25)
[2024-09-22 06:32] LABS: Absolute Lymphocytes (CBC) 1.4 K/uL (0.7-4.9); Absolute Monocytes 0.5 K/uL (0.1-1.3); Basophils % 0.2 % (0-1.3); Hemoglobin 13.1 g/dL (12.0-15.0); Lymphocytes % 17.8 % (15.3-44.8); MCH 30.7 pg (27.0-35.0); MCHC 33.6 g/dL (32.0-36.0); MCV 91.2 fL (80-100); MPV 8.8 fL (7.6-11.3); Nucleated Red Blood Cells % 0.1 % (0-0); Platelets 238 thou/uL (152-406); RBC Red Blood Cell Count 4.27 M/uL (3.86-4.86); Red Cell Distribution Width 13.5 % (12.1-15.2)
[2024-09-22 06:48] LABS: Albumin 3.4 g/dL (3.4-5.0); Albumin/Globulin Ratio 0.9 (1.1-1.8); Anion Gap 9.6 mEq/L (5.0-15.0); Bilirubin Total 0.7 mg/dL (0.2-1.0); Potassium 3.6 mEq/L (3.5-5.1); Protein, Total 7.4 g/dL (6.4-8.2)
[2024-09-22] MEDS: POTASSIUM 25 MEQ EFFERV TAB PO ONE (08:00)
[2024-09-22] MEDS: HYDRALAZINE HCL 25 MG TABLET PO SCH (08:15)
[2024-09-22 12:07] VITALS: BP 151/97; TEMP 98.4
--- NOTE | 2024-09-26 12:37 | EKG ---
Test Date: 2024-09-18 Test Time: 14:18:50 Step Finisher: UMESH MEASUREMENT RESULTS: Intervals: Rate: 86 [place]: 166 QRSD: 94 QT: 388 QTc: 464 [place]: P: 41 [place]: 166 QRS: 16 T: 42 INTERPRETIVE STATEMENTS: Normal sinus rhythm Normal ECG No previous ECG available for comparison Electronically Signed On 09-26-24 12:20:41 ORACLE ARCHITECT by Isaak Angelo
== END 2024-09-22 14:54 | disposition home or self-care (01) | DRG 74 ==
LOC: ER 13:40 → ERHOLD 17:43 → 3RD-ICU 22:07 → 4TH 09-21 16:14
PROVIDERS: ADMIT Hospitalist; ATTEND Internal Medicine
DX: G51.0 Bell's palsy (principal); I16.1 Hypertensive emergency; E87.6 Hypokalemia; F41.9 Anxiety disorder, unspecified; R29.704 NIHSS score 4; R79.89 Other specified abnormal findings of blood chemistry; R47.81 Slurred speech
CPT/HCPCS: 36415; 70450; 70496; 70498; 70551; 71045; 80048; 80053; 80061; 82947; 83036; 83735; 84100; 84436; 84443; 84484; 85025; 85610; 85730; 92526; 92610; 93005; 93306; 96365; 96366; 96372; 97116; 97161; 99285; J0360; J1650; J7512; Q9967